=== PATIENT | male | born 1960 | race Caucasian/White ===

== ENCOUNTER 2020-11-09 15:45 | Inpatient (IN) ==
[2020-11-09] MEDS ORDERED: Ipratropium/Albuterol Neb 3 ML IH ONE (16:04)
[2020-11-09] MEDS ORDERED: cefTRIAXone 2,000 MG in Water for inj. (sterile) 10 ML IVP ONE (16:04)
[2020-11-09] MEDS ORDERED: 0.9 % Sodium Chloride 1,000 ML IVC ONE (16:04)
[2020-11-09] MEDS ORDERED: Azithromycin 500 MG in 0.9 % Sodium Chloride 250 ML IVPB ONE (16:04)
[2020-11-09] MEDS ORDERED: methylPREDNISolone 125 MG/2 ML VIAL IVP ONE (16:04)
[2020-11-09 16:29] LABS: Basophils % 0.1 %; Hematocrit 39.9 % (37.5-50.1); Hemoglobin 14.1 g/dL (12.9-16.9); Immature Granulocytes % 0.7 % (0-4); Lymphocytes # 0.7 K/mcL (0.6-4.6); Lymphocytes % 6.5 %; Mean Corpuscular HGB Conc 35.3 g/dL (31.6-35.5); Mean Corpuscular Hemoglobin 31.5 pg (28.0-33.3); Mean Corpuscular Volume 89.3 fL (83.0-100.0); Mean Platelet Volume 10.5 fL (9.4-12.4); Monocytes # 0.5 K/mcL (0.0-1.3); Monocytes % 4.8 %; Neutrophils # 8.9 K/mcL (1.6-8.9); Platelet Count 284 K/mcL (140-400); Red Blood Count 4.47 M/mcL (4.19-5.50); Red Cell Distribution Width 11.9 % (11.5-14.5); Segmented Neutrophils % 87.9 %; White Blood Count 10.1 K/mcL (4.3-11.1)
[2020-11-09 16:42] LABS: BUN/Creatinine Ratio 35 (6-26); Blood Urea Nitrogen 65 mg/dL (8-23); Calcium 9.1 mg/dL (8.6-10.3); Carbon Dioxide 18 mEq/L (23-29); Chloride 103 mEq/L (98-107); Glucose 445 mg/dL (70-105); Osmolality,Calculated 320 (280-300); Potassium 4.7 mEq/L (3.5-5.1); Sodium 136 mEq/L (136-145); eGFR For African Americans 45 (> 60); eGFR For Non-African Americans 37 (> 60)
[2020-11-09 16:47] LABS: Troponin I < 0.03 ng/mL (< 0.04)
[2020-11-09] MEDS ORDERED: *HR* Enoxaparin 80 MG/0.8 ML SYRINGE SQ STA (16:49)
[2020-11-09] MEDS ORDERED: Naloxone 0.4 MG/ML INJ IVP PRN (17:33)
[2020-11-09] MEDS ORDERED: Ondansetron 4 MG/2 ML VIAL IVP PRN (17:33)
[2020-11-09] MEDS ORDERED: Acetaminophen 325 MG TABLET PO PRN (17:33)
[2020-11-09] MEDS ORDERED: *HR* Heparin 5,000 UNIT/ML VIAL IVP ONE (17:36)
[2020-11-09] MEDS ORDERED: Dextrose Gel 15 GM/37.5 ML TUBE PO PRN ×2 (17:55)
[2020-11-09] MEDS ORDERED: *HR* Dextrose 50 % in Water (Vial) 50 ML VIAL IVP PRN (17:55)
[2020-11-09] MEDS ORDERED: D5% in Water 1,000 ML IVC PRN (17:55)
[2020-11-09 18:21] LABS: Heparin anti-factor XA UFH 0.19 IU/mL (0.30-0.70); INR 1.2; Prothrombin Time 14.3 Seconds (9.4-12.1)
[2020-11-09] MEDS: 0.9 % Sodium Chloride 1,000 ML IVC SCH (18:49)
[2020-11-09] MEDS: Heparin 25,000UNIT/250ML 1/2NS 25,000 UNIT/250 ML IV.SOLN IVC SCH (18:50)
[2020-11-09] MEDS: Insulin LISPRO 300 UNITS/3 ML VIAL SUBQ SCH (20:04)
[2020-11-09] MEDS: Budesonide/Formoterol 160/4.5 1 PUFF INH IH SCH (20:27)
[2020-11-09] MEDS ORDERED: *HR* Heparin 5,000 UNIT/ML VIAL IVP PRN ×2 (22:30→23:30)
[2020-11-10 01:14] LABS: Hematocrit 35.8 % (37.5-50.1); Hemoglobin 12.2 g/dL (12.9-16.9); Mean Corpuscular HGB Conc 34.1 g/dL (31.6-35.5); Mean Corpuscular Hemoglobin 30.7 pg (28.0-33.3); Mean Corpuscular Volume 90.2 fL (83.0-100.0); Mean Platelet Volume 10.2 fL (9.4-12.4); Platelet Count 249 K/mcL (140-400); Red Blood Count 3.97 M/mcL (4.19-5.50); Red Cell Distribution Width 11.9 % (11.5-14.5); White Blood Count 5.8 K/mcL (4.3-11.1)
[2020-11-10 01:34] LABS: Calcium 8.4 mg/dL (8.6-10.3); Chol/HDL Ratio 5.3 (0-4.9); Magnesium 2.1 mg/dL (1.6-2.6); Potassium 5.5 mEq/L (3.5-5.1)
[2020-11-10] MEDS ORDERED: Insulin LISPRO 300 UNITS/3 ML VIAL SUBQ ONE (03:19)
[2020-11-10] MEDS: 0.9 % Sodium Chloride 1,000 ML IVC SCH ×2 (03:26→14:19)
[2020-11-10] MEDS: MethylPREDNISolone 40 MG/ML VIAL IVP SCH ×2 (06:12→17:09)
[2020-11-10] MEDS: Ascorbic Acid 500 MG TABLET PO SCH (08:10)
[2020-11-10] MEDS: METFORMIN HCL PO SCH ×2 (08:10→20:01)
[2020-11-10] MEDS: SITAGLIPTIN PHOS PO SCH ×2 (08:10→20:01)
[2020-11-10] MEDS: Cholecalciferol (D-3) 1,000 UNIT (25MCG) TABLET PO SCH (08:10)
[2020-11-10] MEDS: Insulin LISPRO 300 UNITS/3 ML VIAL SUBQ SCH ×4 (08:11→20:05)
[2020-11-10] MEDS: Budesonide/Formoterol 160/4.5 1 PUFF INH IH SCH ×2 (10:33→21:32)
[2020-11-10 13:27] LABS: Calcium 8.3 mg/dL (8.6-10.3); Potassium 4.4 mEq/L (3.5-5.1)
[2020-11-10] MEDS: Azithromycin 500 MG in 0.9 % Sodium Chloride 250 ML IVPB SCH (14:27)
[2020-11-10] MEDS: cefTRIAXone 2,000 MG in 0.9 % Sodium Chloride Mini Bag 100 ML IVPB SCH (17:09)
[2020-11-10] MEDS: Heparin 25,000UNIT/250ML 1/2NS 25,000 UNIT/250 ML IV.SOLN IVC SCH (17:37)
[2020-11-11] MEDS: 0.9 % Sodium Chloride 1,000 ML IVC SCH ×2 (02:32→16:14)
[2020-11-11] MEDS: MethylPREDNISolone 40 MG/ML VIAL IVP SCH (05:02)
[2020-11-11 07:29] LABS: Hematocrit 33.5 % (37.5-50.1); Hemoglobin 11.3 g/dL (12.9-16.9); Mean Corpuscular HGB Conc 33.7 g/dL (31.6-35.5); Mean Corpuscular Volume 91.8 fL (83.0-100.0); Mean Platelet Volume 10.7 fL (9.4-12.4); Platelet Count 254 K/mcL (140-400); Red Blood Count 3.65 M/mcL (4.19-5.50); Red Cell Distribution Width 12.1 % (11.5-14.5); White Blood Count 11.6 K/mcL (4.3-11.1)
[2020-11-11 07:52] LABS: Calcium 8.3 mg/dL (8.6-10.3); Potassium 5.1 mEq/L (3.5-5.1)
[2020-11-11] MEDS: METFORMIN HCL PO SCH ×2 (09:10→21:11)
[2020-11-11] MEDS: SITAGLIPTIN PHOS PO SCH ×2 (09:10→21:11)
[2020-11-11] MEDS: Ascorbic Acid 500 MG TABLET PO SCH (09:11)
[2020-11-11] MEDS: amLODIPine 5 MG TABLET PO SCH (09:11)
[2020-11-11] MEDS: Cholecalciferol (D-3) 1,000 UNIT (25MCG) TABLET PO SCH (09:11)
[2020-11-11] MEDS: Insulin LISPRO 300 UNITS/3 ML VIAL SUBQ SCH ×4 (09:12→16:14)
[2020-11-11] MEDS: Budesonide/Formoterol 160/4.5 1 PUFF INH IH SCH ×2 (10:41→21:37)
[2020-11-11] MEDS: Azithromycin 500 MG in 0.9 % Sodium Chloride 250 ML IVPB SCH (16:04)
[2020-11-11] MEDS: Heparin 25,000UNIT/250ML 1/2NS 25,000 UNIT/250 ML IV.SOLN IVC SCH (16:17)
[2020-11-11] MEDS: cefTRIAXone 2,000 MG in 0.9 % Sodium Chloride Mini Bag 100 ML IVPB SCH (18:12)
[2020-11-11] MEDS ORDERED: Insulin LISPRO 300 UNITS/3 ML VIAL SUBQ SCH (21:00)
[2020-11-11] MEDS: Apixaban 5 MG TABLET PO SCH (21:11)
[2020-11-12 07:10] VITALS: BP 144/78; PULSE 71; TEMP 98.1
[2020-11-12] MEDS: SITAGLIPTIN PHOS PO SCH (08:00)
[2020-11-12] MEDS: amLODIPine 5 MG TABLET PO SCH (08:00)
[2020-11-12] MEDS: Insulin LISPRO 300 UNITS/3 ML VIAL SUBQ SCH ×2 (08:00→11:46)
[2020-11-12] MEDS: Cholecalciferol (D-3) 1,000 UNIT (25MCG) TABLET PO SCH (08:00)
[2020-11-12] MEDS: Ascorbic Acid 500 MG TABLET PO SCH (08:00)
[2020-11-12] MEDS: Apixaban 5 MG TABLET PO SCH (08:00)
[2020-11-12] MEDS: METFORMIN HCL PO SCH (08:00)
[2020-11-12] MEDS: Budesonide/Formoterol 160/4.5 1 PUFF INH IH SCH (09:22)
[2020-11-12 09:25] VITALS: RESP 18
[2020-11-12 12:32] VITALS: O2SAT 84
== END 2020-11-12 17:49 | disposition home or self-care (01) | DRG 177 ==
LOC: INPPIK 15:45 → EMEROOPIK 15:45 → INPPIK 18:20
PROVIDERS: ADMIT Family Medicine; ATTEND Family Medicine